=== PATIENT | male | born 1945 | race Caucasian/White ===

== ENCOUNTER 2017-06-13 04:49 | Inpatient (IN) | payer OTHER ==
[2017-05-15 12:46] VITALS: BMI 25.0
--- NOTE | 2017-05-15 13:29 | PAT Medication Instructions ---
Service Date May 15, 2017. Current Home Medication List Atorvastatin (Lipitor), 80 MG PO QPM Fish Oil ([place]-3), 1 CAP PO QAM Hydrochlorothiazide (Hydrochlorothiazide), 12.5 MG PO QAM Multiple Vitamins W/ Minerals (Centrum Silver Ultra Mens), 1 TAB PO QAM Naproxen (Aleve), 2 TABS PO DAILY PRN for Pain Medication Instructions For Your Scheduled Surgery - Check with surgeon for instructions: Naproxen (Aleve), 2 TABS PO DAILY PRN for Pain - Hold the following medications 2 weeks prior to surgery: Fish Oil ([place]-3), 1 CAP PO QAM - Hold the following medications the morning of surgery: Hydrochlorothiazide (Hydrochlorothiazide), 12.5 MG PO QAM Multiple Vitamins W/ Minerals (Centrum Silver Ultra Mens), 1 TAB PO QAM - Take the following medications as scheduled the night before surgery: Atorvastatin (Lipitor), 80 MG PO QPM If you have any questions please call us at [phone] or [phone] or [phone]
--- NOTE | 2017-05-15 13:51 | DIAGNOSTIC IMAGING REPORT ---
CHEST PREADMISSION(PA/LAT) CLINICAL HISTORY: Preoperative evaluation. COMPARISON STUDY: No previous studies for comparison. FINDINGS: Lung volumes are normal. No pneumothorax or pleural effusion is present. Pulmonary vascularity is normal. Cardiomediastinal silhouette is normal. No consolidation is identified. IMPRESSION: No acute cardiopulmonary findings. Electronically signed by: Kilo Mayer M.D. 05/15/2017 1:49 PM Dictated Date/Time: 05/15/2017 1:49 PM
[2017-05-15 14:35] LABS: URINE APPEARANCE CLEAR (CLEAR); URINE BILIRUBIN NEG (NEG); URINE COLOR YELLOW; URINE NITRITE NEG (NEG); URINE PH 5.5 (4.5-7.5); URINE SPECIFIC GRAVITY 1.017 (1.000-1.030); UROBILINOGEN NEG (NEG)
[2017-05-15 14:37] LABS: BASO % 0.6 %; BASO ABS # 0.05 K/uL (0-0.2); COMPLETE YES; EOS % 2.2 %; HEMATOCRIT 45.8 % (42-52); IG% 0.5 %; LYMPH % 15.3 %; LYMPH ABS # 1.26 K/uL (1.2-3.4); MEAN CELL VOLUME 93.1 fL (80-100); MEAN CORPUSCULAR HEMOGLOBIN 31.9 pg (25-34); MEAN CORPUSCULAR HGB CONC 34.3 g/dl (32-36); MEAN PLATELET VOLUME 9.7 fL (7.4-10.4); MONO % 4.3 %; NEUT % 77.1 %; PLATELET COUNT 253 K/uL (130-400); RED BLOOD COUNT 4.92 M/uL (4.7-6.1); WHITE BLOOD COUNT 8.22 K/uL (4.8-10.8)
[2017-05-15 14:43] LABS: MANUAL MICROSCOPIC REQUIRED? NO; REVIEW REQ? NO
[2017-05-15 14:44] LABS: BUN/CREATININE RATIO 29.4 (10-20); CALCIUM 9.5 mg/dl (8.5-10.1); CREATININE 0.97 mg/dl (0.60-1.40); POTASSIUM 3.7 mmol/L (3.5-5.1)
[2017-05-15 14:47] LABS: PROTHROMBIN TIME (PATIENT) 10.6 SECONDS (9.0-12.0)
[2017-05-16 05:49] LABS: ESTIMATED AVERAGE GLUCOSE 126 mg/dl; HA1C FLAG Normal (Normal)
--- NOTE | 2017-06-12 15:18 | HISTORY & PHYSICAL EXAMINATION ---
DATE OF ADMISSION: 06/13/2017 CHIEF COMPLAINT: Right hip pain. HISTORY OF PRESENT ILLNESS: The patient is a 71-year-old gentleman with known osteoarthritis about his right hip. He takes Aleve intermittently for pain as needed. He has ongoing pain and disability with activities of daily living. He has pain with prolonged weightbearing and standing activities. He has difficulty with any kneeling, bending, or squatting activities. Due to ongoing pain and disability, he now desires to proceed with right total hip arthroplasty. PAST MEDICAL HISTORY: Hypertension, hypercholesterolemia, and enlarged prostate. PAST SURGICAL HISTORY: Right elbow biceps tendon. MEDICATIONS: Atorvastatin 80 mg daily, hydrochlorothiazide 12.5 mg daily, fish oil 1000 mg daily, Centrum Silver and multivitamin. ALLERGIES: No known drug allergies. SOCIAL HISTORY AND REVIEW OF SYSTEMS: Noncontributory. PHYSICAL EXAMINATION: GENERAL: Well-nourished and well-developed elderly male who appears his stated age. HEENT: Normocephalic and atraumatic. Extraocular movements intact. Oropharynx is pink and moist. NECK: Supple without adenopathy. LUNGS: Clear to auscultation bilaterally. HEART: Regular rate and rhythm. ABDOMEN: Soft, nontender, and nondistended. EXTREMITIES: The upper extremities within normal limits. The right hip demonstrates limited range of motion. There is limitation of active and passive internal/external rotation with pain at end range. X-RAYS: X-rays were reviewed. He has severe osteoarthritis about the right hip with complete loss of the joint space. There is [id number] articulation. He has deformation of the femoral head. ASSESSMENT: Right hip degenerative joint disease. PLAN: Risks versus benefits were discussed. Consent was obtained. The patient's primary care physician is Dr. Justine Lemus from [facility]. We will proceed with right total hip arthroplasty upon preop workup and medical clearance.
[2017-06-13] VITALS (9 sets, daily range): BP systolic 130–167; BP diastolic 71–98; PULSE 61–106; TEMP 36.2–36.5; O2SAT 96–99; Ht 172.7 cm; Wt 75.4 kg
[~2017-06-13] VITALS: Ht 172.7 cm; Wt 75.4 kg
[~2017-06-13 04:49] MED LIST: ATOR-26 PO; HYDR25TA5 PO; MULT-618 PO; NAPR1TAB9 PO; OMEG10007 PO
[2017-06-13] MEDS ORDERED: CeleBREX 200 MG CAP PO SCH (06:00)
[2017-06-13] MEDS ORDERED: CEFAZOLIN 2000 MG/60 ML D5W 60 ML IV SCH (06:00)
[2017-06-13] MEDS ORDERED: METOCLOPRAMIDE HCL 10 MG TAB PO SCH (06:00)
[2017-06-13] MEDS ORDERED: ACETAMINOPHEN 500 MG TAB PO SCH (06:00)
[2017-06-13] MEDS ORDERED: GABAPENTIN 300 MG CAP PO SCH (06:00)
[2017-06-13] MEDS ORDERED: LACTATED RINGER'S 500 ML IV SCH (06:00)
[2017-06-13] MEDS ORDERED: LACTATED RINGER'S 1000ML IV SCH ×2 (06:00)
[2017-06-13] MEDS ORDERED: DEXAMETHASONE 4 MG TAB PO SCH (06:00)
[2017-06-13] MEDS ORDERED: FAMOTIDINE 20 MG TAB PO SCH (06:00)
[2017-06-13] MEDS ORDERED: ROPIVACAINE 5MG/ML 30 ML 150 MG, BUPIVACAINE/EPINEPHR 0.5% MPF 30 ML, KETOROLAC TROMETH... INFIL SCH ×7 (06:00)
[2017-06-13] MEDS ORDERED: BUPIVACAINE 0.5 % 5 MG/1 ML PF 10ML VIAL ONE (06:27)
[2017-06-13] MEDS ORDERED: BACITRACIN 50000 UNIT VIAL ONE (06:28)
[2017-06-13] MEDS ORDERED: POVIDONE-IODINE OP SOLN 30 ML BTL ONE (06:28)
[2017-06-13] MEDS ORDERED: MIDAZOLAM HCL 1 MG/ML 2ML VIAL ONE (06:39)
[2017-06-13] MEDS: TRANEXAMIC ACID INJ 1,000 MG in SODIUM CHLORIDE 0.9% 100ML 100 ML IV SCH ×2 (06:52→09:48)
[2017-06-13] MEDS ORDERED: ONDANSETRON INJ 2 MG/ML 2 ML VIAL IV PRN ×2 (07:00→08:30)
[2017-06-13] MEDS ORDERED: KETOROLAC TROMETHAMINE 15 MG/ML VIAL IV. PRN (07:00)
[2017-06-13] MEDS ORDERED: EpHEDrine SULFATE INJ 50 MG/ML AMP IV PRN (07:00)
[2017-06-13] MEDS ORDERED: PHENYLEPHRINE 100MCG/ML 5ML SYR IV PRN (07:00)
[2017-06-13] MEDS ORDERED: HYDROmorphone INJ 2 MG/ML SYR/VIAL IV PRN (07:00)
[2017-06-13] MEDS ORDERED: ATROPINE SULFATE 0.1 MG/ML 5ML SYR IV PRN (07:00)
--- NOTE | 2017-06-13 07:08 | History & Physical Bridge Note ---
H&P Re-Evaluation Bridge Note: I have examined the patient, reviewed the History & Physical and in the interval since the performance of the History & Physical I have noted the following changes of clinical significance: No changes noted
[2017-06-13] MEDS ORDERED: PROPOFOL IV EMULSION 10 MG/ML 20 ML VIAL IV ONE (07:37)
[2017-06-13] MEDS ORDERED: LIDOCAINE HCL 2% 2 ML VIAL (20MG/ML) ONE (07:37)
[2017-06-13] MEDS ORDERED: EpHEDrine SULFATE 50MG/5ML SYR ONE (07:39)
[2017-06-13] MEDS: ORTHO JOINT ANESTHETIC ONE (07:45)
--- NOTE | 2017-06-13 07:55 | [facility] Post Operative Brief Note ---
Immediate Operative Summary Operative Date Jun 13, 2017. Pre-Operative Diagnosis Right hip degenerative joint disease Post-Operative Diagnosis Right hip degenerative joint disease Procedure(s) Performed Right total hip arthroplasty Surgeon Dr. Mayorga Supervisor Microbiology Technologists Surgeon(s) Mayco Mcgowan PA-C Estimated Blood Loss 50 cc Findings severe OA Specimens A: Right femoral head Disposition Recovery Room / PACU
[2017-06-13] MEDS ORDERED: ALUMINUM/MAGNESIUM/SIMETH (MAALOX MAX) 30 ML UDC PO PRN (08:30)
[2017-06-13] MEDS ORDERED: METOCLOPRAMIDE HCL INJ 5 MG/ML 2 ML VIAL IV PRN (08:30)
[2017-06-13] MEDS ORDERED: TAMSULOSIN HCL 0.4 MG CAP PO PRN (08:30)
[2017-06-13] MEDS ORDERED: ZOLPIDEM TARTRATE 5 MG TAB PO PRN (08:30)
[2017-06-13] MEDS ORDERED: MoRPHine SULFATE 2 MG/ML CARP IV PRN (08:30)
[2017-06-13] MEDS ORDERED: MAGNESIUM HYDROXIDE SUSP 30 ML UDC PO PRN (08:30)
[2017-06-13] MEDS ORDERED: OXYCODONE HCL IR 5 MG TAB (IMMEDIATE RELEASE) PO PRN (08:30)
--- NOTE | 2017-06-13 09:02 | DIAGNOSTIC IMAGING REPORT ---
AP PELVIS AND RIGHT HIP 2 VIEWS CLINICAL HISTORY: Osteoarthritis. Postoperative study COMPARISON STUDY: No previous studies for comparison. FINDINGS: There are postsurgical changes of a total right hip arthroplasty. The acetabular and femoral components appear well seated. There are no acute fractures. There are no dislocations. Overlying surgical drains are evident. There is air within the soft tissues consistent with recent surgery IMPRESSION: Postsurgical changes of a total right hip arthroplasty. Electronically signed by: Andrea Navarrete M.D. 06/13/2017 9:01 AM Dictated Date/Time: 06/13/2017 9:00 AM
--- NOTE | 2017-06-13 09:22 | OPERATIVE REPORT ---
DATE OF OPERATION: 06/13/2017 PREOPERATIVE DIAGNOSIS: Osteoarthritis, right hip. POSTOPERATIVE DIAGNOSIS: Osteoarthritis, right hip. PROCEDURE: Right Accolade total hip arthroplasty. SURGEON: Dr. Mayorga. FUR TAILOR: Mayco Mcgowan PA-C. ANESTHESIA: Spinal. COMPLICATIONS: None. OPERATION AND FINDINGS: PROCEDURE: Following induction of adequate spinal anesthesia, the patient was placed in left lateral decubitus position and right Ness-Langenbeck incision was made. Subcutaneous tissue was sharply dissected. Electrocautery used for hemostasis. The fascia was incised throughout the length of the wound and a mosse scissor placed beneath the short external rotators. The pyriformis was tagged with #1 Vicryl. The short external rotators were divided from the posterior aspect of the femur using electrocautery. These were swept posteriorly. A T-capsulotomy incision was made and the hip was dislocated using a combination of flexion, adduction, and internal rotation. Exposure of the femoral neck with old-style Hohmann and a blunt Hohmann was carried out and a femoral rasp was utilized as a guide for making the appropriate level femoral neck cut. This bone fragment was removed and reserved on the back table. Next, attention was turned to the acetabulum where bone hook was used to retract the femur while the offset retractors were placed anterior and posteriorly. A double-angled Hohmann was placed in superior and anterior position exposing the acetabulum nicely. Acetabular labrum as well as posterior capsule elements were removed using a long knife and a long pickup. Fovea centralis was cleared of all soft tissue. Sequential reamings were carried up to a 52 and decision was made to proceed with impaction of a 52 trabecular metal cup. This was impacted and held using a single 35 mm bone screw. The acetabular liner was placed with 15 of elevated posterior wall in the superior and posterior position. Next, attention was turned to the femoral portion of the case where a Bovie and pickup was used to further clear short external rotators from their insertion on the femur. Box osteotome was used to gain access to the femoral canal and the T-handled rasp and a rattail rasp were used to further open and lateral the canal. Sequentially raspings were carried up to a 5 which gave good fit and fill of the proximal femur. A trial reduction was carried out and ____ offset femoral neck component was chosen as the size to be used. A 5 mm femoral head, -2.5 x 36 ceramic, was impacted into position, +0 head was utilized. The trial reduction was stable in all degrees of rotation with no [id number] impingement. The hip was dislocated. The trial components were removed and the final femoral stem, neck, and femoral head combination were assembled on the back table and impacted into position. Hip was relocated. Range of motion checked once again successful and the wound was irrigated. The pyriformis repaired to the greater trochanter using #1 Vicryl [id number] suture. A Hemovac drain was placed and the fascia was closed using #1 Vicryl, subcutaneous tissue was closed using 0 Dexon, and skin was closed with patrica. Sterile dressing of Adaptic, 4 x 4's, ABDs, and foam tape was applied. The patient tolerated the procedure well, recovery room stable. Due to the complex nature of the procedure, the entire surgery was performed with the operational assistance of Juan M Mao PA-C. The outpatient physical therapist assistant, under direct supervision, was involved in the actual performance of all aspects of the surgical procedure including hemostasis, tissue retraction and incision, instrument management, patient positioning, and wound closure. I attest to the content of the Intraoperative Record and any orders documented therein. Any exception s are noted below.
--- NOTE | 2017-06-13 09:39 | Anesthesiology Progress Note ---
Anesthesia Post Op Note Date & Time Jun 13, 2017 at 09:39 Vital Signs Pain Intensity: 0 Vital Signs Past 12 Hours Date Time Temp Pulse Resp B/P (MAP) Pulse Ox O2 Delivery O2 Flow Rate FiO2 06/13/17 08:50 74 16 131/77 100 Nasal Cannula 2 06/13/17 08:40 36.6 67 16 139/75 100 Nasal Cannula 2 06/13/17 08:30 75 16 132/76 100 Oxymask 3 06/13/17 08:22 37.0 75 18 136/81 100 Oxymask 10 06/13/17 05:55 36.5 61 20 167/98 96 Room Air Notes Mental Status: alert / awake / arousable, participated in evaluation Pt Amnestic to Procedure: Yes Nausea / Vomiting: adequately controlled Pain: adequately controlled Airway Patency, RR, SpO2: stable & adequate BP & HR: stable & adequate Hydration State: stable & adequate Anesthetic Complications: no major complications apparent
[2017-06-13] MEDS ORDERED: MoRPHine SULFATE 4 MG/ML 1 ML CARP\\VIAL IV PRN (09:45)
[2017-06-13] MEDS ORDERED: MoRPHine SULFATE 10 MG/ML CARP/VIAL IV PRN (09:45)
[2017-06-13] MEDS: D5W AND 1/2NSS + 20MEQ KCL 1,000 ML IV SCH ×2 (09:48→19:28)
[2017-06-13] MEDS: MULTIVITAMIN TAB PO SCH (11:03)
[2017-06-13] MEDS: KETOROLAC TROMETHAMINE 15 MG/ML VIAL IV. SCH ×3 (11:04→21:13)
[2017-06-13] MEDS: PANTOprazole SOD 40 MG TAB PO SCH (11:04)
[2017-06-13] MEDS: FERROUS GLUCONATE 324 MG TAB PO SCH ×4 (11:04→18:00)
[2017-06-13] MEDS: HYDROCHLOROTHIAZIDE 25 MG TAB PO SCH (11:04)
[2017-06-13] MEDS: ACETAMINOPHEN 500 MG TAB PO SCH ×2 (13:54→21:11)
[2017-06-13] MEDS: CEFAZOLIN IV 1,000 MG in DEXTROSE 5% 50ML 50 ML IV SCH ×2 (15:54→23:38)
[2017-06-13] MEDS: ASPIRIN 81 MG ECTAB PO SCH (20:40)
[2017-06-13] MEDS: ATORVASTATIN 40 MG TAB PO SCH (20:40)
[2017-06-13] MEDS: DOCUSATE SODIUM 100 MG CAP PO SCH (21:10)
[2017-06-14] MEDS: KETOROLAC TROMETHAMINE 15 MG/ML VIAL IV. SCH (03:43)
[2017-06-14] MEDS: D5W AND 1/2NSS + 20MEQ KCL 1,000 ML IV SCH (03:43)
[2017-06-14 03:45] VITALS: BP 129/75; PULSE 59; TEMP 36.4; O2SAT 97
[2017-06-14] MEDS: ACETAMINOPHEN 500 MG TAB PO SCH ×3 (05:17→21:55)
[2017-06-14 06:28] LABS: BASO % 0.1 %; BASO ABS # 0.01 K/uL (0-0.2); COMPLETE YES; EOS % 0.1 %; HEMATOCRIT 36.6 % (42-52); IG% 0.3 %; LYMPH % 7.1 %; LYMPH ABS # 0.99 K/uL (1.2-3.4); MEAN CELL VOLUME 93.1 fL (80-100); MEAN CORPUSCULAR HEMOGLOBIN 32.1 pg (25-34); MEAN CORPUSCULAR HGB CONC 34.4 g/dl (32-36); MEAN PLATELET VOLUME 9.8 fL (7.4-10.4); MONO % 7.9 %; NEUT % 84.5 %; PLATELET COUNT 211 K/uL (130-400); RED BLOOD COUNT 3.93 M/uL (4.7-6.1); WHITE BLOOD COUNT 13.97 K/uL (4.8-10.8)
[2017-06-14 06:53] LABS: BUN/CREATININE RATIO 17.4 (10-20); CREATININE 0.94 mg/dl (0.60-1.40); POTASSIUM 3.9 mmol/L (3.5-5.1)
[2017-06-14 07:20] VITALS: BP 131/77; PULSE 66; TEMP 36.5; O2SAT 99
[2017-06-14] MEDS ORDERED: DEXAMETHASONE INJ 10 MG in SYRINGE 0 ML IV ONE (07:30)
--- NOTE | 2017-06-14 07:53 | Orthopedic Progress Note ---
Orthopedic Progress Note Date of Service Jun 14, 2017. Subjective Post OP Day: 1 Reports: feeling well Objective N/V intact, dressing C/D/I (Hemovac d/c'd), toes mobile Date Time Temp Pulse Resp B/P (MAP) Pulse Ox O2 Delivery O2 Flow Rate FiO2 06/14/17 03:45 36.4 59 16 129/75 (93) 97 Room Air 06/13/17 23:42 Room Air 06/13/17 23:35 36.4 64 16 130/82 (98) 98 Room Air 06/13/17 19:26 36.5 86 18 132/81 (98) 96 Room Air 06/13/17 15:40 Room Air 06/13/17 15:19 106 16 143/90 (107) 96 Nasal Cannula 2.0 06/13/17 12:05 82 16 146/84 (104) 96 06/13/17 11:13 36.4 80 16 156/71 (99) 96 Nasal Cannula 06/13/17 10:20 75 16 138/81 (100) 99 06/13/17 09:30 78 16 148/87 (107) 97 06/13/17 08:55 36.2 74 16 144/79 (100) 97 Nasal Cannula 2.0 06/13/17 08:55 Nasal Cannula 2.0 06/13/17 08:55 97 Nasal Cannula 2.0 06/13/17 08:50 74 16 131/77 100 Nasal Cannula 2 06/13/17 08:40 36.6 67 16 139/75 100 Nasal Cannula 2 06/13/17 08:30 75 16 132/76 100 Oxymask 3 06/13/17 08:22 37.0 75 18 136/81 100 Oxymask 10 Laboratory Results 24 Hours: Test 06/14/17 05:57 White Blood Count 13.97 K/uL Red Blood Count 3.93 M/uL Hemoglobin 12.6 g/dL Hematocrit 36.6 % Mean Corpuscular Volume 93.1 fL Mean Corpuscular Hemoglobin 32.1 pg Mean Corpuscular Hemoglobin Concent 34.4 g/dl Platelet Count 211 K/uL Mean Platelet Volume 9.8 fL Neutrophils (%) (Auto) 84.5 % Lymphocytes (%) (Auto) 7.1 % Monocytes (%) (Auto) 7.9 % Eosinophils (%) (Auto) 0.1 % Basophils (%) (Auto) 0.1 % Neutrophils # (Auto) 11.80 K/uL Lymphocytes # (Auto) 0.99 K/uL Monocytes # (Auto) 1.11 K/uL Eosinophils # (Auto) 0.02 K/uL Basophils # (Auto) 0.01 K/uL Assessment & Plan Assessment: 71 yo male stable POD #1 s/p right DARA Plan: 1. Med management- 2. DVT prophylaxis- ASA, SCDs 3. PT/OT 4. D/C planning- home w/ HH
--- NOTE | 2017-06-14 07:55 | Discharge Instructions ---
Discharge Instructions Date of Service Jun 14, 2017. Admission Reason for Admission: Right Hip Osteoarthritis Discharge Discharge Diagnosis / Problem: Right hip arthritis Discharge Goals Goal(s): Decrease discomfort, Improve function Activity Recommendations Activity Limitations: as noted below Weightbearing Status: Right weightbearing (as tolerated) . Instructions / Follow-Up Instructions / Follow-Up ACTIVITY RECOMMENDATIONS: SELF CARE INSTRUCTIONS AFTER TOTAL HIP REPLACEMENT Until the incision and soft tissues around your hip have healed, there is a possibility that the hip prosthesis could dislocate. A. Observe the following precautions to prevent dislocation: 1. Don't bend your hip greater than 90 degrees. 2. Avoid crossing your legs or ankles while standing or lying. 3. Sit with your feet placed 6 inches apart. 4. When sitting, keep your knees below your hips. Sit on a firm surface, avoid deep, soft chairs and couches. Use an elevated toilet seat in the bathroom. 5. Don't bend over at the waist. Use a long handled shoehorn and a sock aid to help you put on your shoes and socks. A virtual assistant can help you picker and sorter load and unload objects that are too high or too low to reach. 6. Keep car riding to a minimum for at least one month after surgery. B. Your balance may be shaky for a while. Use crutches or a walker until directed by your doctor. C. Use hand rails when walking on stairs. D. Wear low heeled shoes with non-slip soles. E. Be sure that your floors are free of things that could trip you - throw rugs , electrical cords, small objects. Avoid wet and waxed floors, especially with crutches and canes. F. Try to walk several times a day with rest periods between. G. Continue with all the exercises taught to you in the hospital. Again, make walking a part of your daily routine. SPECIAL CARE INSTRUCTIONS: VERY IMPORTANT TO READ AND REVIEW A. You may still be at risk for phlebitis and blood clots. 1. Wear surgical stockings (VALERIE hose) for 2 weeks after surgery to improve circulation and reduce swelling. 2. Take Aspirin 81mg twice daily for 4 weeks or as directed by your doctor. This is your blood thinner. 3. High risk patients may be prescribed a stronger blood thinner if necessary. 4. If you are on Coumadin normally, your family doctor/auditor/quality should monitor your blood work. Expect a phone call the day of or the day after bloodwork is drawn to adjust your dosage. B. You must take antibiotics before having dental work, bladder, bowel and other surgery. Your doctor will provide you with a permanent card to carry describing precautions. C. Call [facility] if you have a fever, redness or swelling around the incision, cloudy drainage from incision, or sudden increase in pain in your hip, not relieved by your regular pain medication. D. Please call the office at if you have any concerns or questions about your operation or recovery. * YOU MAY SHOWER, NO TUB BATHS UNTIL CLEARED BY YOUR DOCTOR. * WEAR VALERIE HOSE 20 HOURS PER DAY FOR 2 WEEKS. * YOU SHOULD USE A WALKER OR CRUTCHES FOR 2-4 WEEKS. THIS WILL HELP PREVENT STRAIN ON YOUR HIP MUSCLE AND ALLOW IT TO HEAL PROPERLY. YOU MAY WEAN TO A CANE TOLERATED. * MOST PATIENTS WILL HAVE HOME NURSING FOR THERAPY. IF YOU DECIDE TO DO OUTPATIENT PHYSICAL THERAPY, PLEASE SCHEDULE THIS 3 TIMES PER WEEK. Silverlon- This is a large adhesive bandage that contains silver ions. This helps your incision heal by fighting off bacteria and protecting it from the outside environment. You are permitted to shower with this dressing. This will remain on your incision for 7 days and then should be removed. Some visible blood or drainage through the dressing window is normal. If there is significant drainage or leaking noted before the 7 days notify your doctor's office immediately. Once removed, keep incision clean and dry. If there is any drainage or redness noted, please call your surgeon. FOLLOW UP VISIT: If appointment is not already scheduled: Please call [facility] to make a follow-up appointment for 2 weeks after your surgery at . Current Hospital Diet Patient's current hospital diet: Regular Diet Discharge Diet Recommended Diet: Regular Diet Procedures Procedures Performed: Right total hip arthroplasty Pending Studies Studies pending at discharge: no Laboratory Results Hemoglobin A1c Test 05/15/17 13:35 Range/Units Estimated Average Glucose 126 mg/dl Hemoglobin A1c 6.0 H 4.5-5.6 % Medical Emergencies . Who to Call and When: Medical Emergencies: If at any time you feel your situation is an emergency, please call 911 immediately. . Non-Emergent Contact Non-Emergency issues call your: Surgeon Call Non-Emergent contact if: temperature is above 101.5, your pain is not controlled, wound has increased drainage, wound has increased redness . "Provider Documentation" section prepared by Mayco Mcgowan PA-C. . VTE Core Measure Inpt VTE Proph given/why not?: Other Anticoagulation (ASA), T.E.D. Stockings, SCD's [place] Drug Monitoring Program Search Results: patient reviewed within database, no issues identified
--- NOTE | 2017-06-14 07:58 | Anesthesiology Progress Note ---
Anesthesia Post Op Note Date & Time Jun 14, 2017 at 07:57 Vital Signs Pain Intensity: 0.0 Vital Signs Past 12 Hours Date Time Temp Pulse Resp B/P (MAP) Pulse Ox O2 Delivery O2 Flow Rate FiO2 06/14/17 03:45 36.4 59 16 129/75 (93) 97 Room Air 06/13/17 23:42 Room Air 06/13/17 23:35 36.4 64 16 130/82 (98) 98 Room Air Notes Mental Status: alert / awake / arousable, participated in evaluation Pt Amnestic to Procedure: Yes Nausea / Vomiting: adequately controlled Pain: adequately controlled Airway Patency, RR, SpO2: stable & adequate BP & HR: stable & adequate Hydration State: stable & adequate Neuraxial Anesthesia: sensory block resolved Anesthetic Complications: no major complications apparent
[2017-06-14] MEDS: FERROUS GLUCONATE 324 MG TAB PO SCH ×3 (08:55→17:45)
[2017-06-14] MEDS: DOCUSATE SODIUM 100 MG CAP PO SCH ×2 (08:55→20:48)
[2017-06-14] MEDS: MULTIVITAMIN TAB PO SCH (08:55)
[2017-06-14] MEDS: HYDROCHLOROTHIAZIDE 25 MG TAB PO SCH (08:56)
[2017-06-14] MEDS: ASPIRIN 81 MG ECTAB PO SCH ×2 (08:56→20:48)
[2017-06-14] MEDS: PANTOprazole SOD 40 MG TAB PO SCH (08:56)
[2017-06-14 15:03] VITALS: BP 129/77; PULSE 64; TEMP 36.7; O2SAT 96
[2017-06-14] MEDS: ATORVASTATIN 40 MG TAB PO SCH (20:48)
[2017-06-14] MEDS: CeleBREX 200 MG CAP PO SCH (20:49)
[2017-06-14 23:51] VITALS: BP 126/74; PULSE 57; TEMP 36.9; O2SAT 98
[2017-06-15] MEDS: ACETAMINOPHEN 500 MG TAB PO SCH (06:06)
[2017-06-15 06:48] VITALS: BP 122/75; PULSE 56; TEMP 36.7; O2SAT 98
--- NOTE | 2017-06-15 08:33 | Orthopedic Progress Note ---
Orthopedic Progress Note Date of Service Jun 15, 2017. Subjective Post OP Day: 2 Reports: feeling well, pain controlled w PO medications, Denies: complaints, chest pain, SOB, nausea / vomiting, light headedness, calf pain Objective calves soft nontender, N/V intact, capillary refill less than 2 sec., dressing C /D/I, A&O x3, toes mobile Date Time Temp Pulse Resp B/P (MAP) Pulse Ox O2 Delivery O2 Flow Rate FiO2 06/15/17 06:48 36.7 56 16 122/75 (91) 98 Room Air 06/15/17 00:03 Room Air 06/14/17 23:51 36.9 57 16 126/74 (91) 98 Room Air 06/14/17 15:30 Room Air 06/14/17 15:03 36.7 64 16 129/77 (94) 96 Room Air Assessment & Plan Assessment: 71 yo male stable POD #2 s/p right DARA Plan: 1. Med management- 2. DVT prophylaxis- ASA, SCDs 3. PT/OT 4. D/C planning- home w/ HH after PT today Discharge Planning Discharge Planning: home with home health DVT Prophylaxis: TEDs, SCDs, ASA Therapy: Physical Therapy
[2017-06-15] MEDS ORDERED: RXC5 PO (08:36)
[2017-06-15] MEDS ORDERED: ACET-24 PO (08:36)
[2017-06-15] MEDS ORDERED: ONDA8TAB6 PO (08:36)
[2017-06-15] MEDS ORDERED: CLB200 PO (08:36)
[2017-06-15] MEDS ORDERED: ASPEC81 PO (08:36)
[2017-06-15] MEDS ORDERED: CLC100 PO (08:36)
[2017-06-15] MEDS: PANTOprazole SOD 40 MG TAB PO SCH (09:16)
[2017-06-15] MEDS: FERROUS GLUCONATE 324 MG TAB PO SCH (09:16)
[2017-06-15] MEDS: MULTIVITAMIN TAB PO SCH (09:16)
[2017-06-15] MEDS: HYDROCHLOROTHIAZIDE 25 MG TAB PO SCH (09:17)
[2017-06-15] MEDS: ASPIRIN 81 MG ECTAB PO SCH (09:17)
[2017-06-15] MEDS: DOCUSATE SODIUM 100 MG CAP PO SCH (09:17)
[2017-06-15] MEDS: CeleBREX 200 MG CAP PO SCH (09:17)
[2017-06-15 10:47] VITALS: BP 122/75; PULSE 56; TEMP 36.7; O2SAT 98
== END 2017-06-15 11:58 | disposition home health service (06) | DRG 470 ==
LOC: C.ACU 04:49 → C.3E 06:50 → ENRESERV 08:40
PROC: 0SR90JZ Replacement of Right Hip Joint with Synthetic Substitute, Open Approach (ICD-10-PCS; principal; 2017-06-13 07:00)
DX: M16.11 Unilateral primary osteoarthritis, right hip (principal); E78.00 Pure hypercholesterolemia, unspecified; I10 Essential (primary) hypertension; Z79.899 Other long term (current) drug therapy